=== PATIENT | male | born 1990 | race Caucasian/White ===

== ENCOUNTER 2025-03-24 10:04 | Outpatient (AMB) | payer OTHER, SELFPAY ==
--- NOTE | 2025-03-24 10:25 | MHC.PC.OV ---
Vital Signs 03/24/25 10:29 Height 5 ft 9.76 in Weight 221 lb 4 oz BMI 32.0 BP 132/82 Blood Pressure Location Rt brachial Position Sitting Respiration 12 Pulse 105 H Pulse Source Pulse Oximeter Temp 98.5 F Temp Source Oral Pulse Oximetry (%) 97 Oxygen Delivery Method Room Air Intake Visit Reasons: New Appt New Patient requesitng an PE Allergies No Known Allergies Allergy (Verified 03/24/25 10:26) Medication List - Last Reconciled 03/24/25 by Enrico Marin MD clobetasol 0.05% topical fluticasone propionate 50 mcg/actuation (Flonase Allergy Relief) 1 spray intranasal DAILY Tobacco use date assessed: 03/24/25 Dental Screening Dental Screen Date: 03/24/25 Did you have a dental visit in the last 12 months?: Yes Did you have a dental problem in the last 6 months where you did not have access to dental care?: No Was dental information given to patient?: Patient has dentist HPI New Appt New Patient requesitng an PE HPI Details New Patient? ?? Prior PCP:? In [place] Last office visit/CPE:? > 1 yr. around 2016 Acute issue(s):? est Care ?? PMHx:?Asthma, Allergies. Psoriasis. SurgHx:? L Wrist.. R arm fracure & ORIF FHx:? Mom: Depression/Anxiety. Dad: SocHx: Quit Cigs May 2022. EtOH 2 drinks a month. No Drugs PFSH Medical History (Updated 03/24/25 @ 11:11 by Jason Li) Psoriasis Allergies Asthma Surgical History (Updated 03/24/25 @ 10:54 by Erma Rose CMA) History of tonsillectomy Family History (Updated 03/24/25 @ 10:59 by Erma Rose CMA) Mother Asthma Depression Paternal Grandmother Pancreas cancer Other FH: mental illness Social History Housing: House Alcohol intake: current Patient Tobacco Use Status: Former Tobacco user (quit 05/2022) Cigarette Packs Per Day: 1 Years Smoked: 15 e-Cigarette/Vaping Use: Former Use Second Hand Smoke Exposure: No Substance Use Type: Other service: No Current occupational status: employed 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 1. Little interest or pleasure in doing things: not at all 2. Feeling down, depressed, or hopeless: not at all 3. Trouble falling or staying asleep, or sleeping too much: not at all 4. Feeling tired or having little energy: not at all 5. Poor appetite or overeating: not at all 6. Feeling bad about yourself - or that you are a failure or have let yourself or your family down: not at all 7. Trouble concentrating on things, such as reading the newspaper or watching television: not at all 8. Moving or speaking so slowly that other people could have noticed. Or the opposite - being so fidgety or restless that you have been moving around a lot more than usual: not at all 9. Thoughts that you would be better off or of hurting yourself in some way: not at all Total score: 0 Depression Screening Interpretation: Negative Depression Screening Done: Yes 49890 - PHQ-9 Billing: Yes Source: Developed by Drs. Eugene Snell, Shruthi Bear, Jose Guadalupe Luis and colleagues, with an educational juju from [employer]. Thrive Questionnaire Date Thrive assessed: 03/24/25 I am a: Patient What is your living situation today?: I have a steady place to live Within the past 12 months, did the food you bought not last and you didn't have the money to get more?: Never true Within the past 12 months, did you worry whether your food would run out before you got money to buy more?: Never true Do you have trouble paying for medicines?: No Do you have trouble getting transportation to medical appointments?: No Do you have trouble paying your heating and electricity bill?: No Do you have trouble taking care of your child, family member or friend?: No Do you have trouble with day-to-day activities such as bathing, preparing meals, shopping, managing finances, etc.?: No Are you currently unemployed and looking for a job?: No Are you interested in more education?: Yes Please select the resources that you would like help with: None Currently or been in a relationship where the following occur: No concerns reported THRIVE Score: 0 AUDIT C Alcohol Use Questionnaire (AUDIT-C) 1. How often do you have a drink containing alcohol?: 2-4 times a month 2. How many drinks containing alcohol do you have on a typical day when you are drinking?: 1 or 2 3. How often do you have six or more drinks on one occasion?: Less than monthly Total Score: 3 KIM-7 AMB Questionnaire KIM-7 Date KIM - 7 assessed: 03/24/25 Feeling nervous, anxious, or on edge: 0 = Not at all Not being able to stop or control worryin = Not at all Worrying too much about different things: 0 = Not at all Trouble relaxin = Not at all Being so restless that it is hard to sit still: 0 = Not at all Becoming easily annoyed or irritable: 0 = Not at all Feeling afraid as if something awful might happen: 0 = Not at all Total KIM-7 score (0-4 normal; 5-9 mild; 10-14 moderate; 15-21 severe): 0 Source: Developed by Drs. Eugene Snell, Shruthi Bear, Jose Guadalupe Luis and colleagues, with an educational juju from [employer]. KIM-7 Assessment Billing KIM-7 Assessment Tool: KIM-7 Assessment 91294 Review of Systems Const Denies chills, Denies fatigue, Denies fever(s), Denies headache(s) and Denies weakness Eyes Denies change in vision ENT Denies dizziness, Denies headache(s), Denies hearing loss, Denies nasal congestion, Denies sinus pain, Denies sinus pressure and Denies sore throat Card Denies chest pain, Denies lightheadedness, Denies dyspnea and Denies other (palpitations) Resp Denies cough, Denies dyspnea and Denies wheezing GI Denies abdominal pain, Denies melena, Denies hematochezia, Denies change in bowel habits, Denies dyspepsia and Denies nausea Denies hematuria and Denies dysuria Musc Denies abnormal gait, Denies myalgias, Denies arthralgias, Denies numbness and Denies tingling Skin/Breast Denies rash, Denies unusual bruising and Denies wounds Neuro Denies abnormal gait, Denies dizziness, Denies headache(s), Denies memory loss, Denies numbness, Denies Sensory deficit (Neuro), Denies tingling and Denies weakness Psych Denies anxiety, Denies depression and Denies memory loss Endo Denies cold intolerance, Denies fatigue, Denies heat intolerance, Denies polydipsia and Denies polyuria Andreas/Lymph Denies easy bleeding and Denies easy bruising Aller/Immun Denies wheezing Physical exam (Primary Care) Vital Signs: Last Vital Signs Temp 98.5 F 03/24/25 10:29 Pulse 105 H 03/24/25 10:29 Resp 12 03/24/25 10:29 BP 132/82 03/24/25 10:29 Pulse Ox 97 03/24/25 10:29 Oxygen Delivery Method Room Air 03/24/25 10:29 BMI result Body Mass Index 32.0 Tobacco/Smoking Status: Tobacco use Status Tobacco use date assessed 03/24/25 03/24/25 10:32 Patient Tobacco Use Status Former Tobacco user (quit 03/24/25 10:32 2021) e-Cigarette/Vaping Use Former Use 03/24/25 10:32 Depression Screening Interpretation: Negative Currently or been in a relationship where the following occur: No concerns reported Const General: no acute distress, well developed, alert and awake Nutritional Appearance: well nourished Orientation/consciousness: patient oriented x3 HENMT Head: Yes normocephalic and Yes atraumatic Ears: hearing grossly normal bilaterally and TM's normal bilaterally General nose exam: Normal external nose present and Normal nares present Mouth: Normal oral and palatal mucosa present and moist mucous membranes Teeth and gingiva: dentition normal Throat: Yes posterior oropharynx normal Eyes General: appearance normal, both eyes and all related structures Pupils: Equal, round and reactive pupils present and Pupil accommodation reflex normal EOM: EOMs intact bilaterally Neck Neck: Yes normal visual inspection, Yes no lymphadenopathy and Yes trachea midline Thyroid: Thyroid normal Carotids: no bruits Lymphatic: no lymphadenopathy noted Chest Chest palpation & inspection: normal inspection of the chest Resp Effort & Inspection: normal respiratory effort Auscultation: clear to auscultation bilaterally Cardio Rate: regular rate Rhythm: regular rhythm Heart sounds: S1 normal heart sound present, S2 normal heart sound present, no gallops, no murmurs and no rubs Bruits: no abdominal aortic bruits and no carotid bruits GI Palpation (GI): No Abdominal aortic bruit present, Soft to palpation, nontender, No hepatosplenomegaly present and No Rebound tenderness present Auscultation: normal bowel sounds General: Yes no CVA tenderness Back/Spine/Pelvis Back: no CVA tenderness Cervical Spine: cervical ROM normal and No Cervical spine tenderness Thoracic/Lumbar Spine: thoraco-lumbar ROM normal, No pain with thoraco-lumbar ROM, No thoracic spinal tenderness and No lumbar spinal tenderness Skin Lesions: no lesions Rashes: no rashes Trauma: no lacerations or abrasions Wounds: no wounds Nails: normal Neuro General: patient oriented x3 Cranial nerves: Yes Equal, round and reactive pupils present Cognition (Neuro): normal cognition Gait exam (Neuro): Normal gait present Motor exam (neuro): 5/5 motor strength present throughout Sensory Exam: No Sensory deficit (Neuro) Deep tendon reflexes (DTR's): Right patellar reflex intensity grade: 2+ and Left patellar reflex intensity grade: 2+ Extrem General: Yes normal to inspection and No edema Psych Appearance: grossly normal Affect: normal affect Attitude: cooperative Thought process: Normal thought process present Coding Level of Care Code New Pt Level 3 (65497) New Pt Prev Care 18-39yr(18074 Diagnoses Adult general medical exam Z00.00 GERD (gastroesophageal reflux disease) K21.9 Psoriasis L40.9 Additional Codes KIM-7 Assessment Billing - KIM-7 Assessment Tool: KIM-7 Assessment 59327 ([id number]) PHQ-9 - 28486 - PHQ-9 Billing: Yes ([id number]) Assessment & Plan Assessment & Plan (1) Adult general medical exam: Code(s): Z00.00 - Encounter for general adult medical examination without abnormal findings Category: Medical Plan: 34-year-old male presents as new patient for establish of care and complete physical exam Exam within normal limits Encouraged exercise (2) GERD (gastroesophageal reflux disease): Code(s): K21.9 - Gastro-esophageal reflux disease without esophagitis Category: Medical Plan: GERD/dyspepsia with greater than once a week symptoms. He can trial some omeprazole and I recommended lifestyle changes He will let me know if symptoms continue. (3) Psoriasis: Code(s): L40.9 - Psoriasis, unspecified Category: Medical Plan: Controlled with clobetasol He has seen a design assistant in the past. He can continue clobetasol Will refer back to Dermatology if poorly controlled. Orders: Orders Lipid Panel Today Z00.00 - Encounter for general adult medical examination without abnormal findings TSH reflex Free T4 Today Z00.00 - Encounter for general adult medical examination without abnormal findings UA CC w/rflx Micro + Cult Today Z00.00 - Encounter for general adult medical examination without abnormal findings CT NG by PCR Vag/Cerv Today Z11.3 - Encounter for screening for infections with a predominantly sexual mode of transmission HIV Ab/Ag Today Z11.3 - Encounter for screening for infections with a predominantly sexual mode of transmission Hepatitis B,C Profile Today Z11.3 - Encounter for screening for infections with a predominantly sexual mode of transmission Comprehensive [place]. Panel Fast Today Z00.00 - Encounter for general adult medical examination without abnormal findings Microalbumin, Random (w Creat) Today I10 - Essential (primary) hypertension Syphilis Screen Today Z11.3 - Encounter for screening for infections with a predominantly sexual mode of transmission Medications: New omeprazole 20 mg PO DAILY 30 caps 2RF 30 days
[2025-03-24 10:29] VITALS: BP 132/82; PULSE 105; RESP 12; TEMP 36.9; O2SAT 97; BMI 32.0
== END 2025-03-24 11:10 | disposition home or self-care (01) ==
LOC: HO.HMCFM 10:04
PROVIDERS: PCP Family Medicine; Visit Provider Family Medicine
DX: Z00.00 Encounter for general adult medical examination without abnormal findings (principal); K21.9 Gastro-esophageal reflux disease without esophagitis; L40.9 Psoriasis, unspecified

== ENCOUNTER → 2025-03-24 10:04 | Outpatient (BNVA) | payer OTHER, SELFPAY | PROVIDERS: PCP Family Medicine; Visit Provider Family Medicine | DX: Z00.00 Encounter for general adult medical examination without abnormal findings (principal); K21.9 Gastro-esophageal reflux disease without esophagitis; L40.9 Psoriasis, unspecified | CPT/HCPCS: 96127 ==

== ENCOUNTER 2025-04-11 08:24 | Outpatient (REF) | payer OTHER, SELFPAY ==
[2025-04-11 11:23] LABS: Appearance Urine Clear; Glucose Urine UA Negative (Negative); PH 7.5 (5.0-9.0); Specific Gravity - Urine <= 1.005 (1.005-1.025)
[2025-04-11 12:11] LABS: Alanine Aminotransferase 34 U/L (0-40); Albumin Level 5.1 g/dL (3.5-5.0); Alkaline Phosphatase 70 U/L (39-117); Anion Gap 13 (12-20); Aspartate Amino Transferase 29 U/L (5-37); Blood Urea Nitrogen 14 mg/dL (9-16); Calcium 9.4 mg/dL (8.4-10.2); Carbon Dioxide 26 mmol/L (22-29); Chloride 106 mmol/L (96-108); Cholesterol 205 mg/dL (<200); Estimated Glomerular Filt Rate > 60; HDL Cholesterol 44 mg/dL (>40); Potassium 3.6 mmol/L (3.3-5.1); Sodium 141 mmol/L (135-145); Total Protein 7.6 g/dL (6.5-8.0); Triglycerides 96 mg/dL (<150)
[2025-04-11 12:26] LABS: HBS Num1 82.69 mIU/mL (0-7.99); HBc Num1 0.07 S/CO (0.00-0.79); HBsAGNum1 0.37 S/CO (0.00-0.99); HIV Num 1 0.05 S/CO (0.00-0.99); Hepatitis B Surface Antigen Negative (Negative); ~HepC Num1 0.11 S/CO (0.00-0.79); ~Hepatitis B Surface Antibody REACTIVE (Nonreactive); ~Hepatitis C Antibody Nonreactive (Nonreactive)
[2025-04-11 12:27] LABS: Syphilis Screen Nonreactive (Nonreactive)
[2025-04-11 12:58] LABS: CT PCR Urine NOT DETECTED (Not Detect.); NG PCR Urine NOT DETECTED (Not Detect.)
== END 2025-04-11 08:25 | disposition home or self-care (01) ==
LOC: HO.WFDLDS 08:24
PROVIDERS: Visit Provider Family Medicine
DX: Z00.00 Encounter for general adult medical examination without abnormal findings (principal); Z11.3 Encounter for screening for infections with a predominantly sexual mode of transmission; Z11.8 Encounter for screening for other infectious and parasitic diseases; Z11.4 Encounter for screening for human immunodeficiency virus [HIV]; Z11.59 Encounter for screening for other viral diseases; I10 Essential (primary) hypertension
CPT/HCPCS: 80053; 80061; 81003; 82043; 82570; 84443; 86704; 86706; 86780; 86803; 87340; 87389; 87491; 87591

== ENCOUNTER 2025-04-17 10:25 | Outpatient (AMB) | payer OTHER, SELFPAY ==
--- NOTE | 2025-04-17 10:20 | A.OFFPC_ITS ---
Intake Visit Reasons: f/u CPE-labs via telemed Intake Note: Nick presents by phone to go over his latest lab results. Allergies animal dander Allergy (Verified 04/17/25 10:22) Congestion [place] Allergy (Mild, Uncoded 04/17/25 10:22) Congestion Medication List - Last Reconciled 04/17/25 by Enrico Marin MD clobetasol 0.05% topical fluticasone propionate 50 mcg/actuation (Flonase Allergy Relief) 1 spray intranasal DAILY omeprazole 20 mg PO DAILY 30 days Tobacco use date assessed: 04/17/25 Dental Screening Dental Screen Date: 04/17/25 Did you have a dental visit in the last 12 months?: Yes Did you have a dental problem in the last 6 months where you did not have access to dental care?: No Was dental information given to patient?: Patient has dentist HPI f/u CPE-labs via telemed HPI Details 34 y/o male presents to f/u labs via tel emedicine. Labs drawn 04/11/25. Reviewed labs with pt. Triglycerides 96. TC 205. LDL 142. HDL 44. TSH 3.06. Had sent script for omeprazole 20mg. Pt notes he feels omeprazole has been helping for his GERD. [facility] Medical History (Updated 04/17/25 @ 10:30 by Jason Li) Psoriasis Allergies Asthma Surgical History (Updated 03/24/25 @ 10:54 by Erma Rose CMA) History of tonsillectomy Family History Mother Asthma Depression Paternal Grandmother Pancreas cancer Other FH: mental illness Social History (Updated 04/17/25 @ 10:23 by Jackie Gonzales MA) Housing: House Alcohol intake: current Patient Tobacco Use Status: Former Tobacco user (quit 05/2022) Cigarette Packs Per Day: 1 Years Smoked: 15 Packs Per Year: 15 e-Cigarette/Vaping Use: Former Use Second Hand Smoke Exposure: No Substance Use Type: Other service: No Current occupational status: employed Current occupation: [employer] Current occupational exposures/hazards: Yes (rf frequencies) Cognitive needs: No Hearing needs: No Vision needs: No Questionnaire Thrive Questionnaire Date Thrive assessed: 03/24/25 IKM-7 AMB Questionnaire KIM-7 Date KIM - 7 assessed: 03/24/25 Source: Developed by Drs. Eugene Snell, Shruthi Bear, Jose Guadalupe Luis and colleagues, with an educational juju from [employer]. Review of Systems Const Denies chills, Denies fatigue, Denies fever(s), Denies headache(s) and Denies weakness ENT Denies dizziness and Denies headache(s) Card Denies dyspnea Resp Denies cough, Denies dyspnea, Denies wheezing and Denies other (shortness of breath) Musc Denies numbness and Denies tingling Neuro Denies dizziness, Denies headache(s), Denies numbness, Denies tingling and Denies weakness Psych Denies anxiety and Denies depression Endo Denies fatigue Aller/Immun Denies wheezing Physical exam (Primary Care) Tobacco/Smoking Status: Tobacco use Status Tobacco use date assessed 04/17/25 04/17/25 10:25 Patient Tobacco Use Status Former Tobacco user 04/17/25 10:25 e-Cigarette/Vaping Use Former Use 04/17/25 10:25 Thrive Assessment: Date of Thrive Assessment Date Thrive assessed 03/24/25 04/17/25 10:25 Telehealth Telehealth Telehealth Platform: Telephone Location of provider rendering services: practice address Location of patient: address on file Patient Identification confirmed using: Name, : Yes Telehealth method: voice only Patient verbally consented to treatment: Yes Patient verbally consented to billing insurance company: Yes Patient informed of any privacy concerns related to visit: Yes Minutes spent on Phone/Video with Pt.: 6 Coding Level of Care Code Tele Est Pt Level 2 (42586) Diagnoses Elevated LDL cholesterol level E78.00 GERD (gastroesophageal reflux disease) K21.9 Assessment & Plan Assessment & Plan (1) Elevated LDL cholesterol level: Code(s): E78.00 - Pure hypercholesterolemia, unspecified Category: Medical Plan: LDL cholesterol is too high. Goal is less than 100 He will work on a diet lower in saturated fats and cholesterol Will recheck lipids prior to next visit and discuss (2) GERD (gastroesophageal reflux disease): Code(s): K21.9 - Gastro-esophageal reflux disease without esophagitis Category: Medical Plan: Patient notes that symptoms are controlled with omeprazole. He will continue this for another month or two. He can trial off this medication and if still having issues, we can consider a referral to gastroenterology. Orders: Orders Lipid Panel Today Z00.00 - Encounter for general adult medical examination without abnormal findings Comprehensive [place]. Panel Fast Today Z00.00 - Encounter for general adult medical examination without abnormal findings
== END 2025-04-17 16:49 | disposition home or self-care (01) ==
PROVIDERS: PCP Family Medicine; Visit Provider Family Medicine
DX: E78.00 Pure hypercholesterolemia, unspecified (principal); K21.9 Gastro-esophageal reflux disease without esophagitis

== ENCOUNTER 2025-07-11 13:32 | Outpatient (AMB) | payer OTHER, SELFPAY ==
--- NOTE | 2025-07-11 13:34 | MHC.PC.OV ---
Vital Signs 07/11/25 13:47 Height 5 ft 9.76 in Weight 237 lb 2 oz BMI 34.3 BP 126/78 Blood Pressure Location Lt brachial Position Sitting Respiration 12 Pulse 113 H Pulse Source Pulse Oximeter Temp 98.7 F Temp Source Oral Pulse Oximetry (%) 98 Oxygen Delivery Method Room Air Intake Visit Reasons: f/u HLD Intake Note: patient is schedule for gerd/gastritis follow up. patient would like a derm referral for psoriasis. and medication for asthma and allergies. Hourly Team Members Required: No Allergies animal dander Allergy (Verified 07/11/25 13:45) Congestion Wood Allergy (Mild, Uncoded 04/17/25 10:22) Congestion Medication List - Last Reconciled 07/11/25 by Enrico Marin MD clobetasol 0.05% topical fluticasone propionate 50 mcg/actuation (Flonase Allergy Relief) 1 spray intranasal DAILY omeprazole 20 mg PO DAILY 30 days Tobacco use date assessed: 03/24/25 Dental Screening Dental Screen Date: 03/24/25 [facility] Medical History (Updated 07/11/25 @ 14:35 by Enrico Marin MD) Psoriasis Allergies Asthma Surgical History (Updated 03/24/25 @ 10:54 by Erma Rose CMA) History of tonsillectomy Family History Mother Asthma Depression Paternal Grandmother Pancreas cancer Other FH: mental illness Social History (Updated 04/17/25 @ 10:23 by Jackie Gonzales MA) Housing: House Alcohol intake: current Patient Tobacco Use Status: Former Tobacco user (quit 05/2022) Cigarette Packs Per Day: 1 Years Smoked: 15 e-Cigarette/Vaping Use: Former Use Second Hand Smoke Exposure: No Substance Use Type: Other service: No Current occupational status: employed 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 3. Trouble falling or staying asleep, or sleeping too much: several days Source: Developed by Drs. Eugene Snell, Shruthi Bear, Jose Guadalupe Luis and colleagues, with an educational juju from [employer]. Thrive Questionnaire Date Thrive assessed: 03/24/25 I am a: Patient What is your living situation today?: I have a steady place to live Within the past 12 months, did the food you bought not last and you didn't have the money to get more?: Never true Within the past 12 months, did you worry whether your food would run out before you got money to buy more?: Never true Do you have trouble paying for medicines?: No Do you have trouble getting transportation to medical appointments?: No Do you have trouble paying your heating and electricity bill?: No Do you have trouble taking care of your child, family member or friend?: No Do you have trouble with day-to-day activities such as bathing, preparing meals, shopping, managing finances, etc.?: No Are you currently unemployed and looking for a job?: No Are you interested in more education?: Yes Please select the resources that you would like help with: None Currently or been in a relationship where the following occur: No concerns reported THRIVE Score: 0 KIM-7 AMB Questionnaire KIM-7 Date KIM - 7 assessed: 03/24/25 Source: Developed by Drs. Eugene Snell, Shruthi Bear, Jose Guadalupe Luis and colleagues, with an educational juju from [employer]. Physical exam (Primary Care) Vital Signs: Last Vital Signs Temp 98.7 F 07/11/25 13:47 Pulse 113 H 07/11/25 13:47 Resp 12 07/11/25 13:47 BP 126/78 07/11/25 13:47 Pulse Ox 98 07/11/25 13:47 Oxygen Delivery Method Room Air 07/11/25 13:47 BMI result Body Mass Index 34.3 Tobacco/Smoking Status: Tobacco use Status Tobacco use date assessed 03/24/25 07/11/25 13:36 Patient Tobacco Use Status Former Tobacco user (quit 07/11/25 13:36 2021) e-Cigarette/Vaping Use Former Use 07/11/25 13:36 Thrive Assessment: Date of Thrive Assessment Date Thrive assessed 03/24/25 07/11/25 13:36 Currently or been in a relationship where the following occur: No concerns reported Coding Level of Care Code Est Pt Level 4 (71771) Diagnoses Elevated LDL cholesterol level E78.00 GERD (gastroesophageal reflux disease) K21.9 Psoriasis L40.9 Asthma J45.909 Assessment & Plan Assessment & Plan (1) Elevated LDL cholesterol level: Code(s): E78.00 - Pure hypercholesterolemia, unspecified Category: Medical Plan: Had advised lifestyle changes. He has not gotten his labs drawn yet and will do so for follow-up in about a month by telemedicine (2) GERD (gastroesophageal reflux disease): Code(s): K21.9 - Gastro-esophageal reflux disease without esophagitis Category: Medical Plan: Ongoing GERD symptoms He can continue using omeprazole for now Referred to Gastroenterology (3) Psoriasis: Code(s): L40.9 - Psoriasis, unspecified Category: Medical Plan: Patient has been using clobetasol Requests referral to Dermatology Referred (4) Asthma: Code(s): J45.909 - Unspecified asthma, uncomplicated Category: Medical Plan: Intermittent/seasonal symptoms triggered by allergy He can try Zyrtec Nasal steroid Refilled albuterol Orders: Referrals Dermatology Referral L40.9 - Psoriasis, unspecified Gastroenterology Referral K21.9 - Gastro-esophageal reflux disease without esophagitis Medications: New albuterol sulfate 90 mcg/actuation (Ventolin HFA) 2 puffs inhalation Q4-6H PRN 8.5 grams 2RF shortness of breath or wheezing 30 days
[2025-07-11 13:47] VITALS: BP 126/78; PULSE 113; RESP 12; TEMP 37.1; O2SAT 98; BMI 34.3
== END 2025-07-11 14:34 | disposition home or self-care (01) ==
PROVIDERS: PCP Family Medicine; Visit Provider Family Medicine
DX: E78.00 Pure hypercholesterolemia, unspecified (principal); K21.9 Gastro-esophageal reflux disease without esophagitis; L40.9 Psoriasis, unspecified; J45.909 Unspecified asthma, uncomplicated

== ENCOUNTER 2025-08-11 07:34 | Outpatient (REF) | payer OTHER, SELFPAY ==
[2025-08-11 11:47] LABS: Alanine Aminotransferase 46 U/L (0-40); Albumin Level 4.9 g/dL (3.5-5.0); Alkaline Phosphatase 72 U/L (39-117); Anion Gap 13 (12-20); Aspartate Amino Transferase 33 U/L (5-37); Blood Urea Nitrogen 13 mg/dL (9-16); Calcium 9.6 mg/dL (8.4-10.2); Carbon Dioxide 26 mmol/L (22-29); Chloride 106 mmol/L (96-108); Cholesterol 176 mg/dL (<200); Estimated Glomerular Filt Rate > 60; HDL Cholesterol 37 mg/dL (>40); Potassium 4.2 mmol/L (3.3-5.1); Sodium 141 mmol/L (135-145); Total Protein 7.2 g/dL (6.5-8.0); Triglycerides 114 mg/dL (<150)
== END 2025-08-11 07:35 | disposition home or self-care (01) ==
LOC: HO.WFDLDS 07:34
PROVIDERS: Visit Provider Family Medicine
DX: Z00.00 Encounter for general adult medical examination without abnormal findings (principal); Z13.6 Encounter for screening for cardiovascular disorders
CPT/HCPCS: 36415; 80053; 80061

== ENCOUNTER 2025-08-14 16:13 | Outpatient (AMB) | payer OTHER, SELFPAY ==
--- NOTE | 2025-08-14 15:25 | MHC.PC.OV ---
Intake Visit Reasons: 1m hyperlipidemia Intake Note: One month follow up Allergies animal dander Allergy (Verified 08/14/25 16:11) Congestion Boon Allergy (Mild, Uncoded 08/14/25 16:11) Congestion Medication List - Last Reconciled 08/14/25 by Enrico aMrin MD albuterol sulfate 90 mcg/actuation (Ventolin HFA) 2 puffs inhalation Q4-6H PRN 30 days clobetasol 0.05% topical fluticasone propionate 50 mcg/actuation (Flonase Allergy Relief) 1 spray intranasal DAILY omeprazole 20 mg PO DAILY 30 days Tobacco use date assessed: 08/14/25 Dental Screening Dental Screen Date: 03/24/25 HPI 1m hyperlipidemia HPI Details 34 y/o male presents to f/u HLD. Labs drawn 08/11/25. Reviewed labs with pt. Triglycerides 114. TC 176. LDL 117. HDL low at 37. Elevated ALT of 46. AST 33. Reports some asthma. HPI Comments History of Present Illness Details Documentation assistance for Enrico Marin MD, was provided by Jason Li,? Cut Off Machine Helper on 08/14/2025 at 4:35 PM EST. I, Dr. Marin, have read, observed, and verified documentation. ?? COUNTS INCLUDE 234 BEDS AT THE [facility] Medical History (Updated 08/14/25 @ 16:35 by Jason Li) Psoriasis Allergies Asthma Surgical History History of tonsillectomy Family History Mother Asthma Depression Paternal Grandmother Pancreas cancer Other FH: mental illness Social History (Updated 08/14/25 @ 16:12 by Erma Rose CMA) Housing: House Alcohol intake: current Patient Tobacco Use Status: Former Tobacco user (quit 05/2022) Cigarette Packs Per Day: 1 Years Smoked: 15 e-Cigarette/Vaping Use: Former Use Second Hand Smoke Exposure: No Substance Use Type: Other service: No Current occupational status: employed 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 How often do you have a drink containing alcohol?: 2-4 times a month 2. How many drinks containing alcohol do you have on a typical day when you are drinking?: 1 or 2 3. How often do you have six or more drinks on one occasion?: Never Total Score: 2 KIM-7 AMB Questionnaire KIM-7 Date KIM - 7 assessed: 03/24/25 Source: Developed by Drs. Eugene Snell, Shruthi Bear, Jose Guadalupe Luis and colleagues, with an educational juju from [employer]. Review of Systems Const Denies chills, Denies fatigue, Denies fever(s), Denies headache(s) and Denies weakness ENT Denies dizziness and Denies headache(s) Card Denies dyspnea Resp Denies cough, Denies dyspnea, Denies wheezing and Denies other (shortness of breath) Musc Denies numbness and Denies tingling Neuro Denies dizziness, Denies headache(s), Denies numbness, Denies tingling and Denies weakness Psych Denies anxiety and Denies depression Endo Denies fatigue Aller/Immun Denies wheezing Physical exam (Primary Care) Tobacco/Smoking Status: Tobacco use Status Tobacco use date assessed 08/14/25 08/14/25 16:12 Patient Tobacco Use Status Former Tobacco user 08/14/25 16:12 e-Cigarette/Vaping Use Former Use 08/14/25 16:12 Thrive Assessment: Date of Thrive Assessment Date Thrive assessed 03/24/25 08/14/25 15:25 Telehealth Telehealth Telehealth Platform: Telephone Location of provider rendering services: practice address Location of patient: address on file Patient Identification confirmed using: Name, : Yes Telehealth method: voice only Patient verbally consented to treatment: No Patient verbally consented to billing insurance company: No Patient informed of any privacy concerns related to visit: No Minutes spent on Phone/Video with Pt.: 13 Coding Level of Care Code Tele Est Pt Level 2 (22078) Diagnoses Elevated LDL cholesterol level E78.00 Low HDL (under 40) E78.6 Elevated ALT measurement R74.01 Asthma J45.909 Assessment & Plan Assessment & Plan (1) Elevated LDL cholesterol level: Code(s): E78.00 - Pure hypercholesterolemia, unspecified Category: Medical Plan: LDL cholesterol has significantly improved though still above goal of less than 100 Encouraged diet low in saturated fats and cholesterol, exercise and weight loss Will continue to monitor and recheck in a few months. (2) Low HDL (under 40): Code(s): E78.6 - Lipoprotein deficiency Category: Medical Plan: HDL cholesterol is slightly below goal of greater than 40 Work on exercise Will continue to monitor (3) Elevated ALT measurement: Code(s): R74.01 - Elevation of levels of liver transaminase levels Category: Medical Plan: Mildly elevated ALT Hydrate well Encouraged weight loss Will recheck with next blood draw If it is the same or higher will get an ultrasound (4) Asthma: Code(s): J45.909 - Unspecified asthma, uncomplicated Category: Medical Plan: Patient has history as a child of what sounds like moderately severe/persistent asthma He notes that over the last year symptoms have worsened again Currently uses a Ventolin inhaler Symptoms exacerbated at bedtime and also during exercise He is getting symptoms more than once or twice a week Will give him a script for a steroid controlling medication; Pulmicort twice daily He will continue Ventolin for symptoms rescue He can also use Ventolin as pretreatment prior to exercise Call or return to office if worsening or not improving Orders: Orders Lipid Panel Today E78.00 - Pure hypercholesterolemia, unspecified, Z00.00 - Encounter for general adult medical examination without abnormal findings Comprehensive Met. Panel Today E78.00 - Pure hypercholesterolemia, unspecified Medications: New budesonide 180 mcg/actuation (Pulmicort Flexhaler) 1 inh inhalation BID 1 ea 3RF 90 days Refilled albuterol sulfate 90 mcg/actuation (Ventolin HFA) 2 puffs inhalation Q4-6H PRN 8.5 grams 2RF shortness of breath or wheezing 30 days
== END 2025-08-14 17:05 | disposition home or self-care (01) ==
LOC: HO.HMCFM 16:13
PROVIDERS: PCP Family Medicine; Visit Provider Family Medicine
DX: E78.00 Pure hypercholesterolemia, unspecified (principal); E78.6 Lipoprotein deficiency; R74.01 Elevation of levels of liver transaminase levels; J45.909 Unspecified asthma, uncomplicated